=== PATIENT | female | born 1955 | race Caucasian/White ===

== ENCOUNTER 2018-07-15 13:03 | Emergency (ER) | payer BC ==
[~2018-07-15] VITALS: Ht 149.9 cm; Wt 86.6 kg
[2018-07-15 13:05] VITALS: BP 144/97
--- NOTE | 2018-07-15 13:18 | NUR ---
PATIENT AMBULATED TO BED 11
--- NOTE | 2018-07-15 13:28 | NUR ---
63F BIB DAUGHTER WITH C/O LEFT EYE REDNESS X YESTERDAY. PT DENIES ANY ITCHNESS, VISUAL CHANGES, INJURY, OR PAIN. PT IS AAOX4 TO PERSON, PLACE, TIME, AND SITUATION. RR ARE EVEN AND UNLABORED. NAD. AWAITING ER MD CABALLERO. WILL CONTINUE TO MONITOR.
[2018-07-15 14:13] VITALS: BP 141/85
--- NOTE | 2018-07-15 14:13 | NUR ---
Patient discharged with v/s stable. Written and verbal after care instructions given and explained. Patient verbalized understanding. Ambulatory with steady gait. All questions addressed prior to discharge. Advised to follow up with PMD.
== END 2018-07-15 14:13 | disposition home or self-care (01) ==
LOC: MED 13:03
DX: H11.32 Conjunctival hemorrhage, left eye (principal); R05 Cough; I10 Essential (primary) hypertension; E11.9 Type 2 diabetes mellitus without complications; E78.5 Hyperlipidemia, unspecified
CPT/HCPCS: 99281

== ENCOUNTER 2018-09-09 20:16 | Emergency (ER) | payer BC ==
[~2018-09-09] VITALS: Ht 149.9 cm; Wt 81.2 kg
[2018-09-09 20:31] VITALS: BP 150/78
--- NOTE | 2018-09-09 20:35 | NUR ---
TO LOBBY A/W BED, AMBULATORY, ERMJud NOTED
--- NOTE | 2018-09-09 21:06 | NUR ---
PT AMBULATED TO BED 3
--- NOTE | 2018-09-09 21:28 | NUR ---
BIB DAUGHTER WITH C/O LEFT SHOULDER PAIN SINCE TUESDAY, RADIATING UP TO NECK. LIMITED ROM, +CAP REFILL. DENIES INJURY. DENIES OTHER SYMPTOMS AT THIS TIME. 910 PAIN AT THIS TIME. PATIENT POSITIONED FOR COMFORT IN BED. DAUGHTER AT BEDSIDE.
--- NOTE | 2018-09-09 21:45 | NUR ---
Dr. Sanches evaluating patient at bedside.
[2018-09-09] MEDS ORDERED: KETOROLAC 60 MG/2 ML VIAL IM ONE (22:10)
--- NOTE | 2018-09-09 22:20 | NUR ---
SPLINT PROVIDED TO PATIENT, EDUCATION ON USE PROVIDED, PATIENT AND DAUGHTER STATED UNDERSTANDING.
[2018-09-09 22:30] VITALS: BP 150/78
--- NOTE | 2018-09-09 22:30 | NUR ---
Patient discharged with v/s stable. Written and verbal after care instructions given and explained. Patient alert, oriented and verbalized understanding of instructions. Ambulatory with steady gait. All questions addressed prior to discharge. ID band removed. Patient advised to follow up with PMD. Rx of MOTRIN, TRAMADOL given. Patient educated on indication of medication including possible reaction and side effects. Opportunity to ask questions provided and answered.
== END 2018-09-09 22:30 | disposition home or self-care (01) ==
LOC: MED 20:16
DX: M25.512 Pain in left shoulder (principal); E11.9 Type 2 diabetes mellitus without complications; I10 Essential (primary) hypertension
CPT/HCPCS: 73030; 96372; 99283; J1885